=== PATIENT | female | born 1955 | race Native Hawaiian/Other Pacific Islander ===

== ENCOUNTER 2017-02-04 09:05 | Outpatient (CLI) | payer OTHER ==
[~2017-02-04 09:05] MED LIST: ACET-689 PO; ALPR1TAB61 PO; AMBIEN5 MG PO; ASTEPRO0.15 %; CELEBREX200 MG PO; FLUT0.05 NAS; GLUCOSAMINE CHONDRO1 OR; HYDR25TA60 PO; HYDROXYZ HCL50 MG PO; KETOROLAC15 MG/ML IJ; LAMISIL250 MG OR; LEVAQUIN500 MG OR; LISI20TA11 PO; MEDROL DOSEPAK4 MG OR; METROGEL VAG 0.75% VA; NYST100010 EX; RANI150T78 PO; RYBIX ODT50 MG OR; SIMV20TA2 PO; TRAM50TA PO; TRIA0.1C5 TOP; ZYRTEC ALLGY10 MG PO
[2017-02-04 10:18] LABS: POTASSIUM 4.2 mmol/L (3.6-5.2); SODIUM 138 mmol/L (136-145)
== END 2017-02-04 19:07 | disposition home or self-care (01) ==
LOC: LABW 09:05
DX: M17.0 Bilateral primary osteoarthritis of knee (principal); M19.041 Primary osteoarthritis, right hand
CPT/HCPCS: 36415; 80053; 85651; 86140

== ENCOUNTER 2017-06-01 09:34 | Outpatient (CLI) | payer OTHER | END 2017-06-01 19:42 | disposition home or self-care (01) | LOC: RAD 09:34 | DX: M40.294 Other kyphosis, thoracic region (principal); M47.816 Spondylosis without myelopathy or radiculopathy, lumbar region; M54.5 Low back pain; M54.6 Pain in thoracic spine ==

== ENCOUNTER 2017-09-01 12:22 | Outpatient (CLI) | payer OTHER | END 2017-09-01 13:25 | disposition home or self-care (01) | LOC: RAD 12:22 | DX: M25.561 Pain in right knee (principal); M25.562 Pain in left knee; M17.0 Bilateral primary osteoarthritis of knee ==

== ENCOUNTER 2017-10-13 15:23 | Outpatient (CLI) | payer OTHER | END 2017-10-13 16:25 | disposition home or self-care (01) | LOC: RAD 15:23 | DX: M54.5 Low back pain (principal); M25.551 Pain in right hip; M25.561 Pain in right knee; M79.604 Pain in right leg; M25.571 Pain in right ankle and joints of right foot ==

== ENCOUNTER 2017-12-07 10:59 | Outpatient (CLI) | payer OTHER | END 2017-12-07 19:22 | disposition home or self-care (01) | LOC: RAD 10:59 | DX: M79.601 Pain in right arm (principal); S02.80XA Fracture of other specified skull and facial bones, unspecified side, initial encounter for closed fracture ==

== ENCOUNTER 2017-12-19 11:55 | Outpatient (CLI) | payer OTHER | END 2017-12-19 19:38 | disposition home or self-care (01) | LOC: CT 11:55 | DX: T74.11XA Adult physical abuse, confirmed, initial encounter (principal) ==

== ENCOUNTER 2018-08-14 10:31 | Outpatient (CLI) | payer OTHER | END 2018-08-14 19:18 | disposition home or self-care (01) | LOC: LABW 10:31 | DX: Z13.1 Encounter for screening for diabetes mellitus (principal); Z11.59 Encounter for screening for other viral diseases | CPT/HCPCS: 36415; 80074; 83036 ==

== ENCOUNTER 2018-11-14 13:00 | Outpatient (CLI) | payer OTHER | END 2018-11-14 23:44 | disposition home or self-care (01) | LOC: MAMMO 13:00 | DX: Z12.31 Encounter for screening mammogram for malignant neoplasm of breast (principal); Z78.0 Asymptomatic menopausal state; Z13.820 Encounter for screening for osteoporosis ==

== ENCOUNTER 2019-01-25 11:48 | Outpatient (CLI) | payer OTHER | END 2019-01-25 20:41 | disposition home or self-care (01) | LOC: LABW 11:48 | DX: B35.1 Tinea unguium (principal) | CPT/HCPCS: 36415; 84450; 84460 ==

== ENCOUNTER 2019-03-03 00:55 | Outpatient (CLI) | payer OTHER | END 2019-03-03 01:04 | disposition short-term general hospital (02) | LOC: AMB 00:55 | DX: R11.2 Nausea with vomiting, unspecified (principal); R55 Syncope and collapse | CPT/HCPCS: A0425; A0427 ==

== ENCOUNTER 2019-03-03 01:10 | Emergency (ER) | payer OTHER ==
[~2019-03-03] VITALS: Ht 160 cm; Wt 53.5 kg
[2019-03-03 01:10] VITALS: BP 155/90; TEMP 97.5
[2019-03-03 01:40] LABS: PLATELET COUNT 396 K/uL (152-353)
== END 2019-03-03 04:30 | disposition home or self-care (01) ==
LOC: ED 01:10
PROVIDERS: Emergency Medicine
DX: R11.2 Nausea with vomiting, unspecified (principal)
CPT/HCPCS: 85027; 96361; 96365; 99284; J2405

== ENCOUNTER 2020-01-21 10:35 | Outpatient (CLI) | payer OTHER | END 2020-01-21 20:48 | disposition home or self-care (01) | LOC: RAD 10:35 | DX: S69.81XA Other specified injuries of right wrist, hand and finger(s), initial encounter (principal); Z79.899 Other long term (current) drug therapy; R21 Rash and other nonspecific skin eruption ==

== ENCOUNTER 2020-03-06 16:44 | Outpatient (CLI) | payer OTHER | END 2020-03-06 20:12 | disposition home or self-care (01) | LOC: LABW 16:44 | DX: B35.1 Tinea unguium (principal) | CPT/HCPCS: 36415; 84450; 84460 ==

== ENCOUNTER 2020-03-10 09:51 | Outpatient (CLI) | payer OTHER | END 2020-03-10 22:20 | disposition home or self-care (01) | LOC: RAD 09:51 | DX: M85.89 Other specified disorders of bone density and structure, multiple sites (principal) ==

== ENCOUNTER 2020-03-21 10:46 | Outpatient (CLI) | payer OTHER | END 2020-03-21 23:06 | disposition home or self-care (01) | LOC: RAD 10:46 | DX: S09.8XXA Other specified injuries of head, initial encounter (principal); S29.8XXA Other specified injuries of thorax, initial encounter; Y04.0XXA Assault by unarmed brawl or fight, initial encounter ==

== ENCOUNTER 2020-04-24 10:41 | Outpatient (CLI) | payer OTHER | END 2020-04-24 21:37 | disposition home or self-care (01) | LOC: LABW 10:41 | DX: B35.1 Tinea unguium (principal) | CPT/HCPCS: 36415; 84450; 84460 ==

== ENCOUNTER 2020-07-14 09:47 | Outpatient (CLI) | payer OTHER | END 2020-07-14 19:15 | disposition home or self-care (01) | LOC: LABW 09:47 | DX: B35.1 Tinea unguium (principal) | CPT/HCPCS: 36415; 84450; 84460 ==

== ENCOUNTER 2021-02-02 12:34 | Outpatient (CLI) | payer OTHER ==
[2021-02-02 13:01] LABS: PLATELET COUNT 493 K/uL (152-353)
[2021-02-02 13:11] LABS: POTASSIUM 4.1 mmol/L (3.6-5.2)
== END 2021-02-02 19:23 | disposition home or self-care (01) ==
LOC: LABW 12:34
PROVIDERS: ATTEND Nurse Practitioner Family
DX: Z79.899 Other long term (current) drug therapy (principal)
CPT/HCPCS: 36415; 80053; 85027

== ENCOUNTER 2021-08-25 13:55 | Outpatient (CLI) | payer OTHER | END 2021-08-25 20:08 | disposition home or self-care (01) | LOC: MAMMO 13:55 | PROVIDERS: ATTEND Family Medicine | DX: Z12.31 Encounter for screening mammogram for malignant neoplasm of breast (principal) ==

== ENCOUNTER 2021-09-08 21:36 | Emergency (ER) | payer OTHER ==
[~2021-09-08] VITALS: Ht 160 cm; Wt 61.7 kg
[2021-09-08 22:35] VITALS: BP 148/99; TEMP 98.4
== END 2021-09-08 22:35 | disposition home or self-care (01) ==
LOC: ED 21:36
PROC: 0HQFXZZ Repair Right Hand Skin, External Approach (ICD-10-PCS; principal; 2021-09-08)
DX: S61.411A Laceration without foreign body of right hand, initial encounter (principal); W26.0XXA Contact with knife, initial encounter; Y92.238 Other place in hospital as the place of occurrence of the external cause
CPT/HCPCS: 99282

== ENCOUNTER 2021-09-11 09:18 | Outpatient (CLI) | payer OTHER | END 2021-09-11 20:49 | disposition home or self-care (01) | LOC: RAD 09:18 | PROVIDERS: ATTEND Family Medicine | DX: G90.09 Other idiopathic peripheral autonomic neuropathy (principal); M06.4 Inflammatory polyarthropathy; M47.16 Other spondylosis with myelopathy, lumbar region; M47.816 Spondylosis without myelopathy or radiculopathy, lumbar region; M85.89 Other specified disorders of bone density and structure, multiple sites ==

== ENCOUNTER 2021-10-22 12:20 | Emergency (ER) | payer OTHER ==
[~2021-10-22] VITALS: Ht 160 cm; Wt 61.7 kg
[2021-10-22 12:30] VITALS: TEMP 96.8
[2021-10-22 14:01] VITALS: BP 122/67
== END 2021-10-22 14:34 | disposition home or self-care (01) ==
LOC: ED 12:20
DX: S20.219A Contusion of unspecified front wall of thorax, initial encounter (principal); S00.83XA Contusion of other part of head, initial encounter; V47.5XXA Car driver injured in collision with fixed or stationary object in traffic accident, initial encounter; Y92.89 Other specified places as the place of occurrence of the external cause
CPT/HCPCS: 99283

== ENCOUNTER 2021-11-16 10:12 | Outpatient (CLI) | payer OTHER | END 2021-11-16 20:23 | disposition home or self-care (01) | LOC: MAMMO 10:12 | PROVIDERS: ATTEND Family Medicine | DX: R92.8 Other abnormal and inconclusive findings on diagnostic imaging of breast (principal) ==

== ENCOUNTER 2021-11-19 13:54 | Outpatient (CLI) | payer OTHER ==
[2021-11-19 14:16] LABS: PLATELET COUNT 404 K/uL (152-353)
== END 2021-11-19 19:14 | disposition home or self-care (01) ==
LOC: LABW 13:54
PROVIDERS: ATTEND Nurse Practitioner Family
DX: B00.89 Other herpesviral infection (principal); Z79.899 Other long term (current) drug therapy
CPT/HCPCS: 36415; 80053; 85027

== ENCOUNTER 2021-11-23 15:35 | Outpatient (CLI) | payer OTHER ==
[2021-11-23 16:03] LABS: PLATELET COUNT 356 K/uL (152-353)
[2021-11-23 16:25] LABS: POTASSIUM 3.5 mmol/L (3.6-5.2)
== END 2021-11-23 22:12 | disposition home or self-care (01) ==
LOC: RAD 15:35
PROVIDERS: ATTEND Family Medicine
DX: Z01.818 Encounter for other preprocedural examination (principal); R73.03 Prediabetes; I10 Essential (primary) hypertension
CPT/HCPCS: 36415; 80053; 83036; 85027; 93005

== ENCOUNTER 2022-05-04 10:20 | Outpatient (CLI) | payer OTHER | END 2022-05-04 18:52 | disposition home or self-care (01) | LOC: RAD 10:20 | PROVIDERS: ATTEND Nurse Practitioner Family | DX: E55.9 Vitamin D deficiency, unspecified (principal); E56.8 Deficiency of other vitamins; M17.0 Bilateral primary osteoarthritis of knee; M85.89 Other specified disorders of bone density and structure, multiple sites; Z79.899 Other long term (current) drug therapy ==

== ENCOUNTER 2022-05-31 08:51 | Outpatient (CLI) | payer OTHER ==
[2022-05-31 09:07] LABS: PLATELET COUNT 341 K/uL (152-353)
== END 2022-05-31 18:55 | disposition home or self-care (01) ==
LOC: LABW 08:51
PROVIDERS: ATTEND Nurse Practitioner Family
DX: L81.0 Postinflammatory hyperpigmentation (principal); B00.9 Herpesviral infection, unspecified; Z79.899 Other long term (current) drug therapy
CPT/HCPCS: 36415; 80053; 85027

== ENCOUNTER 2022-09-01 15:14 | Emergency (ER) | payer OTHER ==
[~2022-09-01] VITALS: Ht 160 cm; Wt 58.1 kg
[2022-09-01 15:20] VITALS: BP 125/69; TEMP 96.7
== END 2022-09-01 17:34 | disposition home or self-care (01) ==
LOC: ED 15:14
DX: M54.50 Low back pain, unspecified (principal); M47.896 Other spondylosis, lumbar region
CPT/HCPCS: 81002; 96372; 99283; J1885; J2360

== ENCOUNTER 2022-09-17 13:09 | Outpatient (CLI) | payer OTHER | END 2022-09-17 18:59 | disposition home or self-care (01) | LOC: RAD 13:09 | PROVIDERS: ATTEND Family Medicine | DX: M25.552 Pain in left hip (principal); M25.551 Pain in right hip; M54.89 Other dorsalgia; R26.2 Difficulty in walking, not elsewhere classified ==

== ENCOUNTER 2023-02-16 09:53 | Outpatient (CLI) | payer OTHER | END 2023-02-16 19:13 | disposition home or self-care (01) | LOC: MAMMO 09:53 | PROVIDERS: ATTEND Family Medicine | DX: Z12.31 Encounter for screening mammogram for malignant neoplasm of breast (principal) ==